=== PATIENT | male | born 1995 | race American Indian/Alaskan Native ===

== ENCOUNTER 2018-03-14 14:38 | Outpatient (CLI) | payer OTHER | END 2018-03-14 15:00 | disposition home or self-care (01) | LOC: MRI 14:38 | DX: M54.5 Low back pain (principal) | CPT/HCPCS: 72148 ==

== ENCOUNTER 2019-07-19 16:10 | Emergency (ER) | payer OTHER ==
[~2019-07-19] VITALS: Ht 175.3 cm; Wt 77.1 kg
== END 2019-07-19 22:38 | disposition home or self-care (01) ==
LOC: ER 16:10
DX: S30.0XXA Contusion of lower back and pelvis, initial encounter (principal); R06.02 Shortness of breath; W18.39XA Other fall on same level, initial encounter; Y93.89 Activity, other specified; Y92.89 Other specified places as the place of occurrence of the external cause; Y99.8 Other external cause status

== ENCOUNTER 2022-02-08 18:55 | Emergency (ER) | payer OTHER ==
[~2022-02-08] VITALS: Ht 177.8 cm; Wt 79.4 kg
[~2022-02-08 18:55] MED LIST: AMOX-CLAV 875-1 EACH PO; AMOX1TAB5 PO; IBU400 MG PO; INTESTINEX680 M2 PO
[2022-02-08] MEDS ORDERED: PEPCID AC20 MG PO (20:46)
== END 2022-02-08 20:59 | disposition home or self-care (01) ==
LOC: ER 18:55
DX: K52.9 Noninfective gastroenteritis and colitis, unspecified (principal); R53.81 Other malaise; Z20.822 Contact with and (suspected) exposure to COVID-19

== ENCOUNTER 2022-02-11 19:36 | Emergency (ER) | payer OTHER ==
[~2022-02-11] VITALS: Ht 175.3 cm; Wt 76.2 kg
[~2022-02-11 19:36] MED LIST changes: +PEPCID AC20 MG PO
== END 2022-02-12 01:17 | disposition home or self-care (01) ==
LOC: ER 19:36
DX: B34.9 Viral infection, unspecified (principal)

== ENCOUNTER 2022-10-28 08:45 | Outpatient (CLI) | payer OTHER | END 2022-10-28 08:57 | disposition home or self-care (01) | LOC: SONOGRAMA 08:45 | PROVIDERS: ATTEND Internal Medicine | DX: R10.32 Left lower quadrant pain (principal) ==

== ENCOUNTER 2023-02-16 11:46 | Outpatient (CLI) | payer OTHER | END 2023-02-16 12:21 | disposition home or self-care (01) | LOC: MRI 11:46 | PROVIDERS: ATTEND Internal Medicine | DX: R51.9 Headache, unspecified (principal) | CPT/HCPCS: 70551 ==

== ENCOUNTER 2023-03-10 15:45 | Outpatient (CLI) | payer OTHER | END 2023-03-10 15:53 | disposition home or self-care (01) | LOC: RAD 15:45 | PROVIDERS: ATTEND Physical Medicine & Rehabilitation | DX: M54.2 Cervicalgia (principal); M25.512 Pain in left shoulder; M54.59 Other low back pain ==

== ENCOUNTER 2023-03-30 14:41 | Outpatient (CLI) | payer OTHER | END 2023-03-30 14:50 | disposition home or self-care (01) | LOC: MRI 14:41 | PROVIDERS: ATTEND Internal Medicine | DX: M54.50 Low back pain, unspecified (principal) | CPT/HCPCS: 72148 ==

== ENCOUNTER 2024-01-27 16:09 | Outpatient (CLI) | payer OTHER | END 2024-01-27 16:20 | disposition home or self-care (01) | LOC: RAD 16:09 | PROVIDERS: ATTEND Internal Medicine | DX: M79.675 Pain in left toe(s) (principal); M79.674 Pain in right toe(s) ==

== ENCOUNTER 2024-03-01 18:28 | Emergency (ER) | payer OTHER ==
[~2024-03-01] VITALS: Ht 167.6 cm; Wt 81.6 kg
[2024-03-01 20:08] LABS: HEMATOCRIT 45.3 % (39.0-48.0); MEAN CELL VOLUME 88.6 fL (80.0-100.00); MEAN CORPUSCULAR HEMOGLOBIN 31.2 pg (27.00-32.0); MEAN CORPUSCULAR HGB CONC 35.2 g/dl (32.0-36.0); PLATELET COUNT 208 K/uL (150-450); RED BLOOD COUNT 5.11 M/uL (4.00-6.00); RED CELL DISTRIBUTION WIDTH 12.6 % (11.5-14.5)
[2024-03-01 20:36] LABS: ALBUMIN 4.9 gm/dL (3.4-5.0); ALKALINE PHOSPHATASE 85 U/L (50-136); ALT/SGPT 21 U/L (12-78); ANION GAP 8 (10.0-20.0); AST/SGOT 14 U/L (15-37); BILIRUBIN TOTAL 0.47 mg/dL (0.3-1.2); BLOOD UREA NITROGEN 15 mg/dL (7-18); BUN CREA RATIO 22 (7.0-25.0); C-REACTIVE PROTEIN < 0.29 MG/DL (0.00-0.29); CALCIUM 9.7 mg/dL (8.5-10.1); CARBON DIOXIDE 30 mEq/L (21-32); CHLORIDE 105 mmol/L (98-107); CREATININE SERUM 0.67 mg/dL (0.70-1.30); GFR 143.38; GLOBULINA 3.5 G/DL (2.4-3.5); GLUCOSE FASTING 105 mg/dL (65-100); OSMOLALITY SERUM 279 MOSM/KG (275-295); POTASSIUM 3.92 mEq/L (3.5-5.1); SODIUM 139 mmol/L (136-145); TOTAL PROTEIN 8.4 gm/dL (6.4-8.2)
[2024-03-01 20:46] LABS: ERYTHROCYTE SEDIMENTATION RATE 4 mm/hr
== END 2024-03-01 21:04 | disposition home or self-care (01) ==
LOC: ER 18:30
PROVIDERS: General Practice
DX: R20.2 Paresthesia of skin (principal)

== ENCOUNTER 2024-03-08 10:02 | Outpatient (CLI) | payer OTHER | END 2024-03-08 10:04 | disposition home or self-care (01) | LOC: NUCLEAR 10:02 | PROVIDERS: ATTEND General Practice | DX: M79.669 Pain in unspecified lower leg (principal) ==

== ENCOUNTER 2024-03-13 08:26 | Outpatient (CLI) | payer OTHER ==
[2024-03-18] MEDS ORDERED: BACITRACIN1 EACH TOP (11:07)
[2024-03-18] MEDS ORDERED: LEVOFLOXACIN500 MG PO (11:07)
== END 2024-03-13 08:31 | disposition home or self-care (01) ==
LOC: NUCLEAR 08:26
PROVIDERS: ATTEND General Practice
DX: M79.669 Pain in unspecified lower leg (principal)

== ENCOUNTER → 2024-03-18 | Emergency (ER) | payer OTHER ==
[~2024-03-18] VITALS: Ht 175.3 cm; Wt 80.7 kg
[~2024-03-18] MED LIST changes: +BACITRACIN1 EACH TOP; +LEVOFLOXACIN500 MG PO; +NEOMYCIN/BACITRACIN/POLYMYXINB 14 G TUBE TOP ONE
== END | disposition home or self-care (01) ==
LOC: ER 10:34
DX: T14.8XXA Other injury of unspecified body region, initial encounter (principal); Y92.89 Other specified places as the place of occurrence of the external cause

== ENCOUNTER 2024-04-06 12:08 | Outpatient (CLI) | payer OTHER ==
[~2024-04-06 12:08] MED LIST changes: -NEOMYCIN/BACITRACIN/POLYMYXINB 14 G TUBE TOP ONE
== END 2024-04-06 12:23 | disposition home or self-care (01) ==
LOC: MRI 12:08
PROVIDERS: ATTEND Physical Medicine & Rehabilitation
DX: M54.50 Low back pain, unspecified (principal); M54.6 Pain in thoracic spine
CPT/HCPCS: 72148